=== PATIENT | male | born 1995 | race Caucasian/White ===

== ENCOUNTER 2020-10-01 13:57 | Outpatient (CLI) | payer MEDICAID | END 2020-10-01 13:58 | disposition critical access hospital (66) | LOC: EMS 13:57 | DX: M54.5 Low back pain (principal) | CPT/HCPCS: A0425; A0429; A0999 ==

== ENCOUNTER 2020-10-01 14:13 | Emergency (ER) | payer MEDICAID ==
[2020-10-01] MEDS ORDERED: HYDROmorphone 1 MG/ML CARPUJECT IM STA (14:32)
--- NOTE | 2020-10-01 14:35 | ED Physician Documentation ---
History of Present Illness - Stated complaint Stated Complaint: LEG PX/NUMBNESS - Chief complaint Chief Complaint: Back Pain - Additonal information Additional information: 25-year-old male presents emergency department for evaluation of acute on chronic low back pain and now paresthesias of the left lower lateral leg. He reports that he has had chronic back pain for 6 to 7 years after a football injury and thinks he may have sustained some nerve damage. Pain has been increasing recently and he was working in the yard today when he bent over felt a pop that dropped him to his knees. He has been unable to walk since. Denies fevers or saddle anesthesia. He states his back pain has been severe for years limiting his ability to work. He is scheduled to undergo an ABD test for evaluation of disability within the next few weeks. He denies it is ever seen a doctor for his back pain or that he takes medications at home for it. At present no fevers or saddle anesthesia. No bowel or bladder incontinence. no hx of cancer or immunosuppression. Review of Systems Constitutional: reports: Reviewed and negative Ears: reports: Reviewed and negative Nose: reports: Reviewed and negative Throat: reports: Reviewed and negative Cardiac: reports: Reviewed and negative Respiratory: reports: Reviewed and negative Musculoskeletal: reports: Back pain Neurologic: reports: Focal weakness (left lower leg) PD PAST MEDICAL HISTORY - Past Medical History Past Medical History: Yes Cardiovascular: None Respiratory: None Neuro: None Endocrine/Autoimmune: None GI: GERD : None HEENT: None Psych: Depression, Anxiety, Post traumatic stress disorder Musculoskeletal: Chronic back pain Derm: None - Past Surgical History Past Surgical History: Yes General: EGD - Present Medications Home Medications: Ambulatory Orders Medication Instructions Recorded Confirmed Meloxicam [Mobic] 7.5 mg PO BID 10 Days #20 tablet 10/01/20 dexAMETHasone [Decadron] 4 mg PO DAILY #5 tablet 10/01/20 - Allergies Allergies/Adverse Reactions: Allergies Allergy/AdvReac Type Severity Reaction Status Date / Time No Known Drug Allergies Allergy Verified 10/01/20 14:18 - Social History Does the pt smoke?: Yes Smoking Status: Current every day smoker Does the pt drink ETOH?: Yes Does the pt have substance abuse?: Yes Substance Use and Type: Marijuana - Immunizations Immunizations are current?: Yes PD ED PE EXPANDED - General General: Alert, No acute distress - Cardiac Cardiac: Regular Rate, Radial strong equal, Pedal strong equal, Cap refill < 2 sec - Respiratory Respiratory: Clear to ausultation cynthia. No: Distress, Labored - Abdomen Abdomen: Normal Bowel sounds. No: Tender to palpation - Back Back: Soft tissue tenderness (generalized soft tissue tenderness of bilateral though l>R lumbar and throacic musles. ), Other (left legt motor strength 4/5. Right leg strength 5/.5. 2+ patellar reflexez bilaterally. subjective loss of sensation left lower lateral leg). No: CVA TTP right, CVA TTP left - Derm Derm: Normal color, Warm and dry. No: Rash - Extremities Extremities: Normal. No: Deformity, Tenderness - Neuro Neuro: Alert and Oriented X 3, CNII-XII intact - GCS Eye Opening: Spontaneous Motor: Obeys Commands Verbal: Oriented Total: 15 Results - Vitals Vitals: Vital Signs - 24 hr 10/01/20 10/01/20 14:18 14:54 Temperature 37.4 C Heart Rate 63 58 L Respiratory 14 18 Rate Blood Pressure 123/75 122/83 H O2 Saturation 100 98 Oxygen O2 Source Room air PD MEDICAL DECISION MAKING - ED course Complexity details: reviewed results, re-evaluated patient, d/w patient ED course: 25-year-old male presents emergency department with acute on chronic back pain flare when bending over doing yard work and raking. He felt a pop in his back the cause of drop to his knees. He does have some left lower lateral leg numbness but motor strength is preserved. He was given an injection of Toradol as well as Dilaudid with marked improvement in symptoms and able to ambulate freely without a limp and no assistance. Patient will be discharged with a 5- day course of Decadron as well as recommendation for meloxicam to begin after the Decadron course. He is encouraged to establish with a primary care doctor to undergo the routine physical therapy and longer-term evaluation of what seems to be chronic back pain for at least 6 years. Clinically he does not have any red flags emergent return precautions were discussed. Departure - Departure Disposition: 01 Home, Self Care Clinical Impression: Low back pain Qualifiers: Chronicity: chronic Back pain laterality: bilateral Sciatica presence: without sciatica Qualified Code(s): M54.5 - Low back pain; G89.29 - Other chronic pain Condition: Stable Record reviewed to determine appropriate education?: Yes Instructions: ED Spasm Back No Trauma Prescriptions: dexAMETHasone [Decadron] 4 mg PO DAILY #5 tablet Meloxicam [Mobic] 7.5 mg PO BID 10 Days #20 tablet Comments: Ginger you are seen today for back pain that got worse after raking and doing yard work. It sounds as though you have had back pain for a number of years. I would like you to fill the prescription for the Decadron and take daily for the next 5 days. Once you are finished with the Decadron then please begin taking the meloxicam which is a different type of anti-inflammatory. I recommend Tylenol 500 mg with food three times a day as well. Because you have been having back pain for so long you would benefit from being seen by a primary care provider who would likely make recommendations for physical therapy or referral to a pain management clinic. If at any point you have numbness or tingling between your legs, lose control of your bowel or bladder function then please return immediately to the ER for a second look.
[2020-10-01] MEDS ORDERED: KETOROLAC 60 MG/2 ML VIAL IM STA (14:39)
[2020-10-01 16:27] VITALS: BP 116/69
== END 2020-10-01 16:31 | disposition home or self-care (01) ==
LOC: ED 14:13
DX: M54.5 Low back pain (principal); G89.29 Other chronic pain; F17.200 Nicotine dependence, unspecified, uncomplicated
CPT/HCPCS: 96372; 99283; 99284; J1170